=== PATIENT | female | born 1940 | race African-American/Black ===

== ENCOUNTER 2017-01-12 13:52 | Observation (INO) | payer MEDICARE, BC ==
[~2017-01-12] VITALS: Ht 162.6 cm; Wt 26.4 kg
[~2017-01-12 13:52] MED LIST: ADVAIR; ADVAIR 2501 DISK W/D IH; ADVAIR 5001 DISK W/D IH; ALBUTEROL SULF8.5 GM IH; ALBUTEROL0.83 MG/ML INH; ALBUTEROL17 GM; ALLEGRA180 MG PO; AMITRIPTYLINE H10 M1 PO; ANTIVERT12.5 M1 PO; ANTIVERT12.5 MG PO; AVELOX400 MG PO; BENAZEPRIL HCL10 M2 PO; BREO ELLIPTA I1 EACH IH; BUDESONIDE0.5 GM NEB; BUTALBITAL-APA1 EACH PO; CEFDINIR300 M1 PO; CLARITIN10 M5 PO; COMBIVENT INH14.7 G1 IH; COMBIVENT1 PUFF INH; DULERA 100 MCG/13 G1 INH; EFFER-K 20 MEQ20 MEQ PO; ELAVIL25 MG PO; FLOVENT RO50 MCG/DIS; GABAPENTIN100 M1 PO; IPRAT-ALBUT 0.5-3 ML IH; IPRAT-ALBUT 0.5-3 ML INH; KEFLEX250 M2 PO; LEVAQUIN750 MG PO; LEVOFLOXACIN500 M1 PO; LOMOTIL 2.5-0.1 EACH PO; MECLIZINE HCL25 M3 PO; MEDROL4 M2 PO; MEDROL4 MG/DOSE- PO; MEGESTROL400 MG/11 PO; MIGRAINE MED PO; MUPIROCIN22 G2 TOP; NORVASC10 MG PO; NORVASC2.5 M1 PO; NORVASC5 M1 PO; POLYETHYLENE GLY1 G1 PO; PREDNISONE10 M1; PREDNISONE10 M1 PO; PREDNISONE10 MG PO; PRINIVIL10 M1 PO; PRINIVIL20 MG PO; PROAIR HFA8.5 GM INH; PROTONIX40 M2 PO; PULMICORT0.5 MG/2 M IH; STOP THE FOLLOWING:; SYMBICORT 16010.2 GM IH; TOPAMAX50 M2 PO; TOPIRAMATE25 MG PO; TYLENOL325 M1 PO; TYLENOL325 MG PO; ULTRAM50 M1 PO; ULTRAM50 MG PO; VERAMYST10 GM NS; ZESTRIL20 M2 PO; ZOFRAN ODT4 MG/UDTAB PO
[2017-01-12] MEDS ORDERED: ALBUTEROL2.5 MG/3 M INH (14:25)
[2017-01-12] MEDS ORDERED: PERFOROMIS20 MCG/21 (14:32)
[2017-01-12] MEDS ORDERED: COMBIVENT RESPIM4 G1 INH (14:33)
[2017-01-12] MEDS ORDERED: CELEXA10 M1 PO (14:40)
[2017-01-12] MEDS ORDERED: PULMICORT0.5 MG/22 INH (14:41)
[2017-01-12 14:53] LABS: BASO % 0.1 % (0-2); EOS % 0.1 % (0-7); HCT-HEMATOCRIT 40.1 % (34.0-49.0); IMMATURE GRANULOCYTES ABSOLUTE 0.03 tho/cmm (0-0.03); IMMATURE GRANULOCYTES PERCENT 0.4 % (0-0.3); LYMPH % 10.2 % (20-45); LYMPH ABSOLUTE COUNT 0.8 tho/cmm (0.8-4.5); MCH (MEAN CORPUSCULAR HGB) 30.4 pg (28.0-32.0); MCHC MEAN CORPUSCULAR HGB CONC 32.4 % (32.0-36.0); MCV (MEAN CELL VOLUME) 93.9 fl (82.0-96.0); MEAN PLATELET VOLUME 9.7 cmc (9.4-12.4); MONO % 6.4 % (0-12); MONOCYTE ABSOLUTE COUNT 0.5 tho/cmm (0.0-1.2); NEUTROPHIL ABSOLUTE COUNT 6.6 tho/cmm (1.6-8.0); NEUTROPHIL-AUTOMATED 6.6 tho/cmm (1.6-8.0); NEUTROPHILS % 82.8 % (40-80); PLATELET COUNT 317 tho/cmm (150-450); RED BLOOD COUNT 4.27 mil/cmm (4.00-5.20); RED CELL DISTRIBUTION WIDTH 14.4 % (12.4-16.4); WHITE BLOOD COUNT 7.9 tho/cmm (4.0-10.0)
[2017-01-12 15:06] LABS: ALB/GLOB RATIO 0.4 (0.8-2.0); ALKALINE PHOSPHATASE 84 U/L (33-138); ALT/SGPT 25 U/L (12-78); ANION GAP 8 mmol/L (0-20); AST/SGOT 26 U/L (10-40); BILIRUBIN,TOTAL 0.2 mg/dl (0-1.5); BLOOD UREA NITROGEN 19 mg/dl (6-24); CALCIUM 8.6 mg/dl (8.5-10.5); CARBON DIOXIDE-VENOUS 29 mmol/L (22-32); CHLORIDE 112 mmol/l (96-110); CREATININE 0.95 mg/dl (0.50-1.10); GLUCOSE 108 mg/dL (70-110); LIPASE 79 U/L (73-393); POTASSIUM 3.1 mmol/L (3.7-5.1); SODIUM 146 mmol/L (135-145); eGFR VALUE FOR BLACK 67 mL/Min
[2017-01-13 05:04] LABS: ANION GAP 9 mmol/L (0-20); BLOOD UREA NITROGEN 18 mg/dl (6-24); CALCIUM 8.3 mg/dl (8.5-10.5); CARBON DIOXIDE-VENOUS 30 mmol/L (22-32); CHLORIDE 112 mmol/l (96-110); CREATININE 0.76 mg/dl (0.50-1.10); GLUCOSE 77 mg/dL (70-110); POTASSIUM 3.3 mmol/L (3.7-5.1); SODIUM 148 mmol/L (135-145); eGFR VALUE FOR BLACK 88 mL/Min
[2017-01-14 09:14] LABS: ANION GAP 12 mmol/L (0-20); BLOOD UREA NITROGEN 13 mg/dl (6-24); CALCIUM 8.1 mg/dl (8.5-10.5); CARBON DIOXIDE-VENOUS 30 mmol/L (22-32); CHLORIDE 112 mmol/l (96-110); CREATININE 0.53 mg/dl (0.50-1.10); GLUCOSE 95 mg/dL (70-110); POTASSIUM 3.9 mmol/L (3.7-5.1); SODIUM 150 mmol/L (135-145); eGFR VALUE FOR BLACK >90 mL/Min
[2017-01-14 09:46] LABS: URINE BILIRUBIN NEGATIVE (NEG); URINE BLOOD LARGE (NEG); URINE GLUCOSE (UA) NEGATIVE (NEG); URINE KETONE SMALL (NEG); URINE LEUKOCYTE ESTERASE POSITIVE (NEG); URINE NITRITE NEGATIVE (NEG); URINE PROTEIN SMALL (NEG)
[2017-01-14 09:47] LABS: URINE APPEARANCE CLEAR; URINE COLOR YELLOW
[2017-01-14 09:54] LABS: URINE BACTERIA 1+; URINE EPITHELIAL CELLS RARE /[HPF] (0-10)
[2017-01-16] MEDS ORDERED: DULCOLAX10 MG PR (12:02)
[2017-01-16] MEDS ORDERED: ROXANOL SL (12:05)
[2017-01-16] MEDS ORDERED: ATIVAN0.5 M1 PO (12:07)
== END 2017-01-16 12:50 | disposition hospice, home (50) ==
LOC: EDMED → EDBD 13:52 → EDMED 13:52 → CAR1 17:00 → EMR2 17:00 → SHSC 17:47 → CAR1 17:47
PROVIDERS: Emergency Medicine; Nurse Practitioner; Nurse Practitioner Acute Care; ADMIT Family Medicine
DX: R11.2 Nausea with vomiting, unspecified (principal); R19.7 Diarrhea, unspecified; J44.9 Chronic obstructive pulmonary disease, unspecified; R64 Cachexia; N13.2 Hydronephrosis with renal and ureteral calculous obstruction; R62.7 Adult failure to thrive; R53.81 Other malaise; E43 Unspecified severe protein-calorie malnutrition; E87.6 Hypokalemia; I10 Essential (primary) hypertension; G43.909 Migraine, unspecified, not intractable, without status migrainosus; Z79.899 Other long term (current) drug therapy; Z90.49 Acquired absence of other specified parts of digestive tract; Z87.11 Personal history of peptic ulcer disease; Z87.891 Personal history of nicotine dependence; Z98.890 Other specified postprocedural states; Z99.81 Dependence on supplemental oxygen; Z66 Do not resuscitate
CPT/HCPCS: G0378; G8978-GP-CH; G8978-GP-CK; G8979-GP-CH; G8979-GP-CM; G8980-GP-CH; G8980-GP-CK; G8987-GO-CM; G8988-GO-CL; G8988-GO-CM; G8989-GO-CM; J0131; J1644; J3480; J7030